=== PATIENT | female | born 1985 | race Two or more races ===

== ENCOUNTER 2019-01-29 15:37 | Emergency (ER) | payer OTHER ==
[~2019-01-29] VITALS: Ht 167.6 cm; Wt 62.6 kg
--- NOTE | 2019-01-29 15:42 | NUR ---
BIB PD FOR MEDICAL CLEARANCE PRIOR TO PSYCH ADMISSION, +SI, TO ER BED 10, HOOKED TO MONITOR, PROVIDED W WARM BLANKET, DR MEADOWS AT BEDSIDE
[2019-01-29] MEDS ORDERED: LORAZEPAM 1 MG TABLET ONE (15:56)
[2019-01-29] MEDS ORDERED: LORAZEPAM 1 MG TABLET PO ONE (16:00)
--- NOTE | 2019-01-29 16:01 | NUR ---
Patient discharged in custody in stable condition. Written and verbal after care instructions given. PD verbalizes understanding of instruction.
[2019-01-29 16:02] VITALS: BP 124/74
== END 2019-01-29 16:01 ==
LOC: ER 15:41
DX: R45.851 Suicidal ideations (principal); F17.200 Nicotine dependence, unspecified, uncomplicated